=== PATIENT | male | born 1940 | race Two or more races ===

== ENCOUNTER 2021-10-10 22:49 | Emergency (ER) | payer OTHER ==
[~2021-10-10] VITALS: Ht 182.9 cm; Wt 99.8 kg
--- NOTE | 2021-10-10 23:09 | NUR ---
[id number]. GEN WEAKNESS X 2 DAYS. REPORTED TO HAVE FALLEN EARLIER TODAY. DENEIS ANY PAIN. PT AWAKE AMS WNL. NO ABNORMAL EXTENSION OR ROTATION OF EXTREMITIES. TOLERATING R/A WELL WITH NO SOB. CONNECTED PT TO POX AND MONITOR.
--- NOTE | 2021-10-10 23:21 | NUR ---
[facility] [phone] (FIRST CHOICE) CELL [phone]
--- NOTE | 2021-10-10 23:26 | NUR ---
VIDEO PRODUCTION SPECIALIST AT PT'S BEDSIDE
[2021-10-10 23:43] LABS: BASOPHILS # (AUTO) 0.1 K/uL (0.0-0.2); EOSINOPHILS % (AUTO) 0.3 % (0.0-6.0); HEMATOCRIT 42 % (39-51); HEMOGLOBIN 14.1 g/dL (13.5-17.5); LYMPHOCYTES # (AUTO) 0.3 K/uL (0.8-4.8); LYMPHOCYTES % (AUTO) 2.8 % (20.0-44.0); MEAN CORPUSCULAR HGB CONC 33 g/dl (31.0-36.0); MEAN CORPUSCULAR VOLUME 99 fL (80-96); MONOCYTES # (AUTO) 0.5 K/uL (0.1-1.30); MONOCYTES % (AUTO) 4.3 % (2.0-12.0); NEUTROPHILS # (AUTO) 10.6 K/uL (1.8-8.9); NEUTROPHILS % (AUTO) 91.6 % (43.0-81.0); PLATELET COUNT (AUTO) 143 K/uL (150-450); RED BLOOD CELL COUNT(AUTO) 4.27 MIL/uL (4.5-6.0); WHITE BLOOD COUNT (AUTO) 11.6 K/uL (4.3-11.0)
[2021-10-10 23:57] LABS: CALCIUM, SERUM 8.3 mg/dL (8.5-10.1); CARBON DIOXIDE 21 mmol/L (21-32); CHLORIDE 97 mmol/L (98-107); CREATININE 1.6 mg/dL (0.6-1.3); GLUCOSE 189 mg/dL (74-106); POTASSIUM 5.5 mmol/L (3.5-5.1); SODIUM SERUM 127 mmol/L (136-145); UREA NITROGEN, BLOOD 42 mg/dL (7-18)
--- NOTE | 2021-10-10 23:58 | NUR ---
IT SPECIALIST AT PT'S BEDSIDE
[2021-10-11 00:10] LABS: ALANINE AMINOTRANSFERASE 57 U/L (12-78); ALBUMIN 2.1 g/dL (3.4-5.0); ALKALINE PHOSPHATASE 104 U/L (46-116); ASPARTATE AMINOTRANSFERASE 63 U/L (15-37); BILIRUBIN,DIRECT 0.3 mg/dL (0.0-0.2); TOTAL PROTEIN, SERUM 6.3 g/dL (6.4-8.2)
--- NOTE | 2021-10-11 00:19 | NUR ---
called [facility] . awaiting for dr abrams's call back
[2021-10-11] MEDS ORDERED: ENOXAPARIN SODIUM 100 MG/ML DISP.SYRIN SQ ONE ×2 (00:30→00:41)
[2021-10-11] MEDS ORDERED: IV NS 0.9% 2,000 ML IV ONE (00:30)
--- NOTE | 2021-10-11 00:32 | NUR ---
LAW RAINEY ON PHONE CALL WITH DR ELYSE WHELAN MD. PT ASYMPTOMATIC AND VSS.
[2021-10-11 01:11] LABS: D-DIMER 16.65 mg/L(FEU (0.17-0.50)
--- NOTE | 2021-10-11 03:57 | NUR ---
PT GOT ACCEPTED AT [facility] BY DR JOHNSON. ALS PRN ETA:[id number], # FOR REPORT: [phone]. TELE ROOM: [id number]
--- NOTE | 2021-10-11 04:50 | NUR ---
report given to carlos at [facility].
[2021-10-11 05:49] VITALS: BP 152/53
--- NOTE | 2021-10-11 05:58 | NUR ---
[facility] AT BED SIDE TO HEAD TRIMMER THE PT
--- NOTE | 2021-10-11 06:24 | NUR ---
pt picked up by paramedics and transferred to [facility] by acls protocol.
--- NOTE | 2021-10-11 06:30 | NUR ---
CALLED X3 TO INFORM REG PT'S TRANSFFER NOBODY ANSWERED. INFORMED PT CALLED X3 AND NOBODY ANSWERED.
== END 2021-10-11 06:31 | disposition short-term general hospital (02) ==
LOC: ER 22:51
DX: I21.4 Non-ST elevation (NSTEMI) myocardial infarction (principal); R09.02 Hypoxemia; R53.1 Weakness; E87.1 Hypo-osmolality and hyponatremia; E87.5 Hyperkalemia; N17.9 Acute kidney failure, unspecified; Z20.822 Contact with and (suspected) exposure to COVID-19; Z86.16 Personal history of COVID-19; R91.8 Other nonspecific abnormal finding of lung field; R79.1 Abnormal coagulation profile
CPT/HCPCS: 36415 ×2; 71045; 80048; 80076; 83880; 84443; 84484 ×2; 85025; 85378; 85730; 87426; 93005; 96360; 96372; 99291; 99292; C9803; J1650